=== PATIENT | male | born 1960 | race African-American/Black ===

== ENCOUNTER 2016-10-02 18:10 | Emergency (ER) | payer BC ==
[~2016-10-02] VITALS: Ht 177.8 cm; Wt 78.0 kg
[2016-10-02 18:27] VITALS: BP 185/121
[2016-10-02] MEDS ORDERED: LOPRESSOR50 PO (18:40)
[2016-10-02] MEDS ORDERED: ELIMITE60 GM TP ×2 (18:46→18:49)
[2016-10-02] MEDS ORDERED: PREDNISONE 20 M20 MG PO ×2 (18:46→18:49)
[2016-10-02] MEDS ORDERED: ZYRTEC10 M2 PO ×2 (18:46→18:49)
== END 2016-10-02 18:59 | disposition home or self-care (01) ==
LOC: ER 18:10
DX: B86 Scabies (principal)